=== PATIENT | female | born 1935 | race Caucasian/White ===

== ENCOUNTER 2017-11-24 18:26 | Emergency (ER) | payer MEDICARE ==
[~2017-11-24] VITALS: Ht 165.1 cm; Wt 127.0 kg
[~2017-11-24 18:26] MED LIST: AMIO200T27 PO; CALC-336 PO; CHOL2000 PO; CINN500C16 PO; LACT1CAP73 PO; METO50TA17 PO; RIVA10TA PO; TURM500C3; occuvite PO
[2017-11-24 19:03] LABS: BASOPHILS % (AUTO) 0.3 % (0-1); EOSINOPHILS # (AUTO) 0.3 X10'3 (0-0.9); EOSINOPHILS % (AUTO) 4.7 % (0-6); HEMATOCRIT 45.4 % (35.0-45.0); HEMOGLOBIN 14.8 g/dl (12.0-16.0); LYMPHOCYTES # (AUTO) 1.5 X10'3 (1.1-4.8); LYMPHOCYTES % (AUTO) 24.4 % (21-51); MEAN CORPUSCULAR HEMOGLOBIN 28.6 PG (27.0-31.0); MEAN CORPUSCULAR HGB CONC 32.5 % (33.0-36.5); MEAN CORPUSCULAR VOLUME 87.9 FL (78-98); MEAN PLATELET VOLUME 7.5 FL (7.4-10.4); MONOCYTES # (AUTO) 0.6 X10'3 (0-0.9); MONOCYTES % (AUTO) 10.5 % (2-12); NEUTROPHILS # (AUTO) 3.6 X10'3 (1.8-7.7); NEUTROPHILS % (AUTO) 60.1 % (42-75); PLATELET COUNT 176 X10'3 (140-440); RED BLOOD COUNT 5.17 X10'6 (4.20-5.60)
[2017-11-24 19:15] LABS: PARTIAL THROMBOPLASTIN TIME 27 SECONDS (22-32); PROTHROMBIN TIME 10.7 SECONDS (9.0-12.0)
[2017-11-24 19:19] LABS: ALANINE AMINOTRANSFERASE 44 U/L (12-78); ALBUMIN 3.7 G/DL (3.4-5.0); ALBUMIN/GLOBULIN RATIO 0.8 (1.1-1.5); ALKALINE PHOSPHATASE 111 IU/L (46-116); ANION GAP 8 (8-16); ASPARTATE AMINO TRANSFERASE 30 U/L (10-37); BILIRUBIN,TOTAL 0.3 MG/DL (0.1-1.0); BLOOD UREA NITROGEN 21 MG/DL (7-18); BUN/CREATININE RATIO 23.6 (6.6-38.0); CALCIUM 9.4 MG/DL (8.5-10.1); CHLORIDE 105 MMOL/L (99-107); CREATININE 0.89 MG/DL (0.40-0.90); GLUCOSE 103 MG/DL (70-104); POTASSIUM 4.2 MMOL/L (3.5-5.1); SODIUM 145 MMOL/L (135-145); TOTAL PROTEIN 8.1 G/DL (6.4-8.2); eGFR 61 ML/MIN
[2017-11-24 20:27] LABS: D-DIMER 0.53 MG/L FEU (0-0.50)
[2017-11-24] MEDS ORDERED: GUAI120L55 PO (22:42)
[2017-11-24 23:20] VITALS: BP 159/83
== END 2017-11-24 23:21 | disposition home or self-care (01) ==
LOC: ER 18:26
DX: R91.8 Other nonspecific abnormal finding of lung field (principal); R06.02 Shortness of breath; R05 Cough; I50.9 Heart failure, unspecified; Z88.0 Allergy status to penicillin; Z79.899 Other long term (current) drug therapy
CPT/HCPCS: 36415; 71045; 71275; 80053; 83880; 84484; 85025; 85379; 85610; 85730; 93005; 99285

== ENCOUNTER 2018-04-21 08:42 | Outpatient (CLI) | payer MEDICARE ==
[~2018-04-21 08:42] MED LIST changes: +GUAI120L55 PO
[2018-04-21 09:15] LABS: TOTAL HEMOGLOBIN 12.2 G/dl (12.0-16.0)
[2018-04-21] MEDS ORDERED: albuterol 2.5 MG/3 ML nebule NEB ONE (10:05)
[2018-04-22] MEDS ORDERED: METO25TA6 PO (06:51)
[2018-04-22] MEDS ORDERED: CINN500C15 PO (06:51)
[2018-04-22] MEDS ORDERED: TURM500C4 PO (06:51)
== END 2018-04-21 23:59 | disposition home or self-care (01) ==
LOC: RT 08:42
PROVIDERS: ATTEND Internal Medicine Cardiovascular Disease
DX: Z51.81 Encounter for therapeutic drug level monitoring (principal); J98.4 Other disorders of lung; Z79.899 Other long term (current) drug therapy
CPT/HCPCS: 85018; 94060; 94640; 94727; 94729; 94760

== ENCOUNTER 2019-03-07 10:34 | Inpatient (IN) | payer MEDICARE ==
[~2019-03-07] VITALS: Ht 165.1 cm; Wt 147.0 kg
[~2019-03-07 10:34] MED LIST changes: +CINN500C15 PO; -CINN500C16 PO; -GUAI120L55 PO; -LACT1CAP73 PO; +METO25TA6 PO; -METO50TA17 PO; -TURM500C3; +TURM500C4 PO
[2019-03-07 11:21] LABS: BASOPHILS % (AUTO) 0.6 % (0-1); EOSINOPHILS # (AUTO) 0.2 X10'3 (0-0.9); EOSINOPHILS % (AUTO) 2.3 % (0-6); HEMATOCRIT 37.9 % (35.0-45.0); HEMOGLOBIN 12.4 g/dl (12.0-16.0); LYMPHOCYTES % (AUTO) 14.2 % (21-51); MEAN CORPUSCULAR HEMOGLOBIN 29.2 PG (27.0-31.0); MEAN CORPUSCULAR HGB CONC 32.7 g/dL (33.0-36.5); MEAN CORPUSCULAR VOLUME 89.2 FL (78-98); MEAN PLATELET VOLUME 8.7 FL (7.4-10.4); MONOCYTES # (AUTO) 0.6 X10'3 (0-0.9); MONOCYTES % (AUTO) 8.6 % (2-12); NEUTROPHILS % (AUTO) 74.3 % (42-75); PLATELET COUNT 146 X10'3 (140-440); RED BLOOD COUNT 4.25 X10'6 (4.20-5.60); RED CELL DISTRIBUTION WIDTH 15.5 % (11.5-14.5); WHITE BLOOD COUNT 6.8 X10'3 (4.5-11.0)
[2019-03-07 11:36] LABS: ALANINE AMINOTRANSFERASE 43 U/L (12-78); ALBUMIN 3.4 G/DL (3.4-5.0); ALKALINE PHOSPHATASE 62 IU/L (46-116); ANION GAP 7 (8-16); ASPARTATE AMINO TRANSFERASE 29 U/L (10-37); BILIRUBIN,TOTAL 0.4 MG/DL (0.1-1.0); BLOOD UREA NITROGEN 27 MG/DL (7-18); BUN/CREATININE RATIO 26.2 (6.6-38.0); CHLORIDE 109 MMOL/L (99-107); CREATININE 1.03 MG/DL (0.40-0.90); GLUCOSE 98 MG/DL (70-104); POTASSIUM 4.2 MMOL/L (3.5-5.1); SODIUM 145 MMOL/L (135-145); TOTAL CARBON DIOXIDE 29.2 MMOL/L (24-32); TOTAL PROTEIN 6.7 G/DL (6.4-8.2); eGFR 51 ML/MIN
[2019-03-07 11:41] LABS: INR 1.4 INR; PARTIAL THROMBOPLASTIN TIME 30 SECONDS (22-32); PROTHROMBIN TIME 13.6 SECONDS (9.0-12.0)
[2019-03-07] MEDS ORDERED: iohexol 350MG/ML 100ml bottle IV ONE (12:54)
[2019-03-07] MEDS ORDERED: metoprolol tartrate 1mg/ml inj IV ONE (14:50)
--- NOTE | 2019-03-07 14:59 | NUR ---
Informed LONG CISNEROS about gait test.
[2019-03-07] MEDS ORDERED: mag hydrox/Alum hydrox/simeth 30ml oral suspension PO PRN (15:55)
[2019-03-07] MEDS ORDERED: ondansetron/PF 4mg/2ml inj IV PRN (15:55)
[2019-03-07] MEDS ORDERED: potassium Cl 20 mEq SR tablet PO PRN ×2 (15:55)
[2019-03-07] MEDS ORDERED: potassium Cl 40MEQ/NS 500ml 500 ML IV PRN ×2 (15:55)
[2019-03-07] MEDS ORDERED: diltiazem-D5W 125mg/125ml 125 ML IV SCH (15:55)
[2019-03-07] MEDS ORDERED: furosemide 40mg/4ml inj IV ONE (15:55)
[2019-03-07] MEDS ORDERED: magnesium 2GM in 50ml NS 50 ML IV PRN (15:55)
[2019-03-07] MEDS ORDERED: acetaminophen 325mg tablet PO PRN ×2 (15:55)
[2019-03-07] MEDS: K and/or MAG REPLACEMENT MC SCH (15:55)
[2019-03-07] MEDS ORDERED: magnesium 4gm in 100ml NS 100 ML IV PRN (15:55)
[2019-03-07] MEDS ORDERED: diltiazem 5mg/ml 5ml inj. IV ONE (15:55)
[2019-03-07] MEDS ORDERED: HYDROcodone/acetaminophen 10/325mg tab PO PRN (15:55)
[2019-03-07] MEDS ORDERED: MAGN400O6 PO (15:59)
[2019-03-07] MEDS: amiodarone 200mg tablet PO SCH (16:44)
[2019-03-07] MEDS: furosemide 40mg/4ml inj IV SCH (19:50)
[2019-03-07] MEDS: metoprolol tartrate 25mg tablet PO SCH (19:50)
[2019-03-07] MEDS: magnesium hydroxide 30ml (MOM) UD suspension PO PRN (20:19)
[2019-03-07] MEDS ORDERED: temazepam 15mg capsule PO PRN (21:00)
--- NOTE | 2019-03-07 23:45 | NUR ---
REPORT RECIEVED FROM SHAI ALVES RN. QUESTIONS ASKED AND ANSWERED. PATIENT WILL BE TRANSFERED TO FLOOR ON HOSPITAL BED.
--- NOTE | 2019-03-07 23:59 | NUR ---
PATIENT ARRIVED TO ROOM 3026 B IN HOSPITAL BED ON 3L NC, CARD GTT RUNNING AT 5. PATIENT IS ALERT AND IN GOOD SPIRTS SINGING A SONG. SKIN CHECK AND DART COMPLETED. WICK PLACED DUE TO INCONTINENCE. PATIENT AWARE OF HOW CALL LIGHT, BED, WICK, TV WORK.
[2019-03-08] VITALS (19 sets, daily range): BP systolic 104–145; BP diastolic 57–88
--- NOTE | 2019-03-08 00:56 | NUR ---
PATIENT ON PERSONAL CPAP
[2019-03-08 05:30] LABS: ALBUMIN 3.2 G/DL (3.4-5.0); ANION GAP 10 (8-16); BLOOD UREA NITROGEN 26 MG/DL (7-18); BUN/CREATININE RATIO 23.6 (6.6-38.0); CALCIUM 8.6 MG/DL (8.5-10.1); CHLORIDE 108 MMOL/L (99-107); CHOL/HDL RATIO 2.3 (0.00-4.99); CHOLESTEROL 123 MG/DL (0-200); GLUCOSE 93 MG/DL (70-104); HDL CHOLESTEROL 53 MG/DL (35-60); LDL CHOLESTEROL 60 MG/DL (50-100); MAGNESIUM 1.7 MG/DL (1.5-2.4); POTASSIUM 3.7 MMOL/L (3.5-5.1); SODIUM 145 MMOL/L (135-145); TOTAL CARBON DIOXIDE 26.8 MMOL/L (24-32); TRIGLYCERIDES 53 MG/DL (20-135); eGFR 48 ML/MIN
[2019-03-08 06:02] LABS: HEMATOCRIT 37.2 % (35.0-45.0); HEMOGLOBIN 12.1 g/dl (12.0-16.0); MEAN CORPUSCULAR HEMOGLOBIN 29.1 PG (27.0-31.0); MEAN CORPUSCULAR HGB CONC 32.6 g/dL (33.0-36.5); MEAN CORPUSCULAR VOLUME 89.2 FL (78-98); MEAN PLATELET VOLUME 8.8 FL (7.4-10.4); PLATELET COUNT 126 X10'3 (140-440); RED BLOOD COUNT 4.17 X10'6 (4.20-5.60); RED CELL DISTRIBUTION WIDTH 15.2 % (11.5-14.5); WHITE BLOOD COUNT 5.3 X10'3 (4.5-11.0)
[2019-03-08] MEDS ORDERED: amiodarone 150mg/dext, iso-os 100 ML IV ONE (07:20)
[2019-03-08] MEDS ORDERED: morphine 10mg/ml inj. IV PRN (07:25)
[2019-03-08] MEDS ORDERED: MIDAZolam 1mg/ml 10ml vial IV PRN (07:25)
[2019-03-08] MEDS: metoprolol tartrate 25mg tablet PO SCH ×2 (08:00→20:00)
[2019-03-08] MEDS: K and/or MAG REPLACEMENT MC SCH (08:00)
[2019-03-08] MEDS ORDERED: amiodarone/D5 360MG/200ML BAG 200 ML IV SCH (08:15)
[2019-03-08] MEDS: furosemide 40mg/4ml inj IV SCH ×2 (08:45→19:59)
[2019-03-08] MEDS: amiodarone 200mg tablet PO SCH (11:23)
[2019-03-08] MEDS: rivaroxaban 10mg tablet PO SCH (11:25)
[2019-03-08] MEDS: magnesium Cl slow-release 64mg tablet PO PRN ×2 (11:25→20:01)
--- NOTE | 2019-03-08 14:02 | NUR ---
Patient in room PCU 3027. I have received report from Sophy ACHARYA and had the opportunity to ask questions and assume patient care. Will continue to monitor patient.
--- NOTE | 2019-03-08 18:25 | NUR ---
Problems reprioritized. Patient report given, questions answered & plan of care reviewed with Karley ACHARYA. Patient stable at transfer of care.
[2019-03-08] MEDS: magnesium hydroxide 30ml (MOM) UD suspension PO PRN (20:04)
--- NOTE | 2019-03-08 20:18 | NUR ---
Per Dr. Farley, patient's HR in the 90's now and he is concerned about patient trying to convert to A-flutter. Give Amiodarone 150mg now and get an other EKG in the am.
[2019-03-08] MEDS ORDERED: amiodarone 200mg tablet PO ONE (20:20)
[2019-03-08] MEDS ORDERED: amiodarone 100mg tablet PO ONE (20:35)
[2019-03-09 02:00] VITALS: BP 105/63
[2019-03-09 04:56] LABS: HEMATOCRIT 38.4 % (35.0-45.0); HEMOGLOBIN 12.7 g/dl (12.0-16.0); MEAN CORPUSCULAR HEMOGLOBIN 29.5 PG (27.0-31.0); MEAN CORPUSCULAR HGB CONC 33.1 g/dL (33.0-36.5); MEAN CORPUSCULAR VOLUME 89.4 FL (78-98); MEAN PLATELET VOLUME 8.6 FL (7.4-10.4); PLATELET COUNT 114 X10'3 (140-440); RED CELL DISTRIBUTION WIDTH 15.5 % (11.5-14.5); WHITE BLOOD COUNT 5.7 X10'3 (4.5-11.0)
[2019-03-09 05:14] LABS: ALBUMIN 3.2 G/DL (3.4-5.0); ANION GAP 6 (8-16); BLOOD UREA NITROGEN 29 MG/DL (7-18); BUN/CREATININE RATIO 25.9 (6.6-38.0); CALCIUM 8.7 MG/DL (8.5-10.1); CHLORIDE 106 MMOL/L (99-107); CREATININE 1.12 MG/DL (0.40-0.90); GLUCOSE 107 MG/DL (70-104); PHOSPHORUS 4.5 MG/DL (2.3-4.5); POTASSIUM 4.4 MMOL/L (3.5-5.1); SODIUM 141 MMOL/L (135-145); TOTAL CARBON DIOXIDE 29.2 MMOL/L (24-32); eGFR 47 ML/MIN
[2019-03-09 05:31] LABS: INR 1.3 INR; PARTIAL THROMBOPLASTIN TIME 30 SECONDS (22-32); PROTHROMBIN TIME 12.7 SECONDS (9.0-12.0)
--- NOTE | 2019-03-09 05:57 | NUR ---
Problems reprioritized. Patient report given, questions answered & plan of care reviewed with MARCK Kellogg.
[2019-03-09 06:10] VITALS: BP 115/81
--- NOTE | 2019-03-09 07:16 | NUR ---
Patient in room PCU 3026. I have received report from JERARDO ACHARYA and had the opportunity to ask questions and assume patient care. BEDSIDE REPORT COMPLETED. PT RESTING NO DISTRESS. CALL LIGHT IN REACH. Addendum: 03/09/19 at 0717 by Bess Sanchez RN Amended: Links added.
[2019-03-09] MEDS: K and/or MAG REPLACEMENT MC SCH (08:00)
[2019-03-09] MEDS: rivaroxaban 10mg tablet PO SCH (08:09)
[2019-03-09] MEDS: amiodarone 200mg tablet PO SCH (08:10)
[2019-03-09] MEDS: metoprolol tartrate 25mg tablet PO SCH (08:11)
[2019-03-09] MEDS: furosemide 40mg/4ml inj IV SCH (08:11)
[2019-03-09] MEDS ORDERED: metoprolol tartrate 12.5mg (1/2 tablet) PO ONE (08:20)
[2019-03-09] MEDS ORDERED: POTA20TA19 PO (11:20)
[2019-03-09] MEDS ORDERED: DOCU-28 PO (11:20)
[2019-03-09] MEDS ORDERED: FURO-150 PO (11:20)
[2019-03-09 11:40] VITALS: BP 120/87
--- NOTE | 2019-03-09 13:30 | NUR ---
ALL WRITTEN AND VERBAL ORDERS FOR D/C GIVEN. ALL QUESTIONS ANSWERED. PT STATED SHE HAD ALL BELONGINGS. CHF CLASS INFO GIVEN. NEED TO BE COMPLIANT WITH MEDS REVIEWED. PT LEFT HOSPITAL VIA W/C. HOME WITH FRIEND. Addendum: 03/09/19 at 1426 by Bess Sanchez RN Amended: Links added.
[2019-03-09] MEDS ORDERED: metoprolol tartrate 25mg tablet PO SCH (20:00)
[2019-03-10] MEDS ORDERED: furosemide 40mg/4ml inj IV SCH (08:00)
== END 2019-03-09 14:09 | disposition home or self-care (01) | DRG 291 ==
LOC: ER 10:35 → UNDOADMIN 15:59 → ED HOLD 15:59 → CMPBEDREQ 03-08 00:07 → PCU 3S 03-08 00:21
PROVIDERS: ADMIT Family Medicine; ATTEND Internal Medicine
PROC: B3201ZZ Computerized Tomography (CT Scan) of Thoracic Aorta using Low Osmolar Contrast (ICD-10-PCS; 2019-03-07)
PROC: B32T1ZZ Computerized Tomography (CT Scan) of Left Pulmonary Artery using Low Osmolar Contrast (ICD-10-PCS; 2019-03-07)
PROC: B32S1ZZ Computerized Tomography (CT Scan) of Right Pulmonary Artery using Low Osmolar Contrast (ICD-10-PCS; 2019-03-07)
PROC: 5A2204Z Restoration of Cardiac Rhythm, Single (ICD-10-PCS; principal; 2019-03-08)
PROC: 5A09357 Assistance with Respiratory Ventilation, Less than 24 Consecutive Hours, Continuous Positive Airway Pressure (ICD-10-PCS; 2019-03-09)
DX: I11.0 Hypertensive heart disease with heart failure (principal); J96.01 Acute respiratory failure with hypoxia; Z68.43 Body mass index [BMI] 50.0-59.9, adult; I50.33 Acute on chronic diastolic (congestive) heart failure; G47.30 Sleep apnea, unspecified; R00.1 Bradycardia, unspecified; I25.10 Atherosclerotic heart disease of native coronary artery without angina pectoris; E66.01 Morbid (severe) obesity due to excess calories; I27.20 Pulmonary hypertension, unspecified; M19.90 Unspecified osteoarthritis, unspecified site; I48.0 Paroxysmal atrial fibrillation; K59.09 Other constipation; Z90.49 Acquired absence of other specified parts of digestive tract; Z88.0 Allergy status to penicillin; Z91.040 Latex allergy status; Z79.899 Other long term (current) drug therapy; Z79.01 Long term (current) use of anticoagulants; Z80.0 Family history of malignant neoplasm of digestive organs; Z80.41 Family history of malignant neoplasm of ovary
CPT/HCPCS: 36415; 71045; 71275; 80048; 80053; 80061; 82948; 83735; 83880; 84100; 84443; 84484; 85025; 85027; 85610; 85730; 87070; 93005; 93306; 99285; G0378; J0282; J1940; J2250; J2270; J3490; Q9967

== ENCOUNTER 2019-05-04 13:42 | Outpatient (CLI) | payer MEDICARE ==
[~2019-05-04] VITALS: Ht 190.5 cm; Wt 141.5 kg
[~2019-05-04 13:42] MED LIST changes: -AMIO200T27 PO; +DOCU-28 PO; +MAGN400O6 PO; -occuvite PO
[2019-05-04] MEDS ORDERED: albuterol 2.5 MG/3 ML nebule NEB PRN (14:55)
== END 2019-05-04 23:59 | disposition home or self-care (01) ==
LOC: RT 13:42
PROVIDERS: ATTEND Internal Medicine Cardiovascular Disease
DX: R06.02 Shortness of breath (principal); I11.0 Hypertensive heart disease with heart failure; I50.9 Heart failure, unspecified; I48.91 Unspecified atrial fibrillation; I25.10 Atherosclerotic heart disease of native coronary artery without angina pectoris; Z79.899 Other long term (current) drug therapy; Z87.891 Personal history of nicotine dependence
CPT/HCPCS: 85018; 94060; 94727; 94729; 94760

== ENCOUNTER 2019-06-02 09:36 | Emergency (ER) | payer MEDICARE ==
[~2019-06-02] VITALS: Ht 165.1 cm; Wt 141.4 kg
[2019-06-02 10:16] LABS: BASOPHILS % (AUTO) 0.8 % (0-1); EOSINOPHILS # (AUTO) 0.1 X10'3 (0-0.9); EOSINOPHILS % (AUTO) 2.5 % (0-6); HEMATOCRIT 39.9 % (35.0-45.0); HEMOGLOBIN 12.9 g/dl (12.0-16.0); LYMPHOCYTES % (AUTO) 16.7 % (21-51); MEAN CORPUSCULAR HEMOGLOBIN 28.8 PG (27.0-31.0); MEAN CORPUSCULAR HGB CONC 32.3 g/dL (33.0-36.5); MEAN CORPUSCULAR VOLUME 89.2 FL (78-98); MEAN PLATELET VOLUME 8.5 FL (7.4-10.4); MONOCYTES # (AUTO) 0.5 X10'3 (0-0.9); MONOCYTES % (AUTO) 8.7 % (2-12); NEUTROPHILS # (AUTO) 4.1 X10'3 (1.8-7.7); NEUTROPHILS % (AUTO) 71.3 % (42-75); PLATELET COUNT 162 X10'3 (140-440); RED BLOOD COUNT 4.48 X10'6 (4.20-5.60); RED CELL DISTRIBUTION WIDTH 17.4 % (11.5-14.5); WHITE BLOOD COUNT 5.8 X10'3 (4.5-11.0)
[2019-06-02 10:33] LABS: PARTIAL THROMBOPLASTIN TIME 31 SECONDS (22-32)
[2019-06-02 10:43] LABS: ALANINE AMINOTRANSFERASE 48 U/L (12-78); ALBUMIN 3.5 G/DL (3.4-5.0); ALBUMIN/GLOBULIN RATIO 0.9 (1.1-1.5); ALKALINE PHOSPHATASE 73 IU/L (46-116); ANION GAP 8 (8-16); ASPARTATE AMINO TRANSFERASE 32 U/L (10-37); BILIRUBIN,TOTAL 0.6 MG/DL (0.1-1.0); BLOOD UREA NITROGEN 25 MG/DL (7-18); BUN/CREATININE RATIO 22.3 (6.6-38.0); CHLORIDE 108 MMOL/L (99-107); CREATININE 1.12 MG/DL (0.40-0.90); GLUCOSE 97 MG/DL (70-104); POTASSIUM 4.5 MMOL/L (3.5-5.1); SODIUM 143 MMOL/L (135-145); TOTAL CARBON DIOXIDE 26.9 MMOL/L (24-32); TOTAL PROTEIN 7.2 G/DL (6.4-8.2); eGFR 47 ML/MIN
[2019-06-02] MEDS ORDERED: furosemide 20MG tablet PO ONE (14:15)
[2019-06-02 14:25] VITALS: BP 138/79
[2019-06-02] MEDS ORDERED: metoprolol succinate 25mg (24-HOUR) SR. Tablet PO SCH (15:40)
[2019-06-02] MEDS ORDERED: metoprolol succinate 25mg (24-HOUR) SR. Tablet PO ONE (15:40)
== END 2019-06-02 16:04 | disposition home or self-care (01) ==
LOC: ER 09:37
DX: I50.9 Heart failure, unspecified (principal); I48.91 Unspecified atrial fibrillation; Z86.718 Personal history of other venous thrombosis and embolism; Z86.711 Personal history of pulmonary embolism; Z87.01 Personal history of pneumonia (recurrent); Z88.0 Allergy status to penicillin; Z91.040 Latex allergy status; Z79.899 Other long term (current) drug therapy
CPT/HCPCS: 36415; 71045; 80053; 83880; 84484; 85025; 85610; 85730; 93005; 99284

== ENCOUNTER 2019-06-15 09:24 | Emergency (ER) | payer MEDICARE ==
[~2019-06-15] VITALS: Ht 165.1 cm; Wt 142.0 kg
--- NOTE | 2019-06-15 10:45 | NUR ---
Vascular at bedside.
[2019-06-15 11:18] VITALS: BP 143/65
== END 2019-06-15 11:49 | disposition home or self-care (01) ==
LOC: ER 09:25
DX: R25.2 Cramp and spasm (principal); I48.91 Unspecified atrial fibrillation; I50.9 Heart failure, unspecified; Z86.718 Personal history of other venous thrombosis and embolism; Z88.0 Allergy status to penicillin; Z91.040 Latex allergy status; Z88.8 Allergy status to other drugs, medicaments and biological substances; Z79.899 Other long term (current) drug therapy
CPT/HCPCS: 93971; 99284

== ENCOUNTER 2019-10-15 20:10 | Emergency (ER) | payer MEDICARE ==
[~2019-10-15] VITALS: Ht 165.1 cm; Wt 121.0 kg
[2019-10-15] MEDS ORDERED: BUME2TAB7 PO (20:29)
[2019-10-15] MEDS ORDERED: SPIR25TA5 PO (20:29)
[2019-10-15] MEDS ORDERED: TRIA1CAP6 PO (20:29)
[2019-10-15 20:38] VITALS: BP 125/75
[2019-10-15 20:52] LABS: BASOPHILS # (AUTO) 0.1 X10'3 (0-0.2); BASOPHILS % (AUTO) 0.7 % (0-1); EOSINOPHILS # (AUTO) 0.2 X10'3 (0-0.9); EOSINOPHILS % (AUTO) 2.7 % (0-6); HEMATOCRIT 34.8 % (35.0-45.0); HEMOGLOBIN 11.6 g/dl (12.0-16.0); LYMPHOCYTES # (AUTO) 1.1 X10'3 (1.1-4.8); LYMPHOCYTES % (AUTO) 12.2 % (21-51); MEAN CORPUSCULAR HEMOGLOBIN 29.5 PG (27.0-31.0); MEAN CORPUSCULAR HGB CONC 33.3 g/dL (33.0-36.5); MEAN CORPUSCULAR VOLUME 88.4 FL (78-98); MEAN PLATELET VOLUME 8.4 FL (7.4-10.4); MONOCYTES % (AUTO) 11.3 % (2-12); NEUTROPHILS # (AUTO) 6.4 X10'3 (1.8-7.7); NEUTROPHILS % (AUTO) 73.1 % (42-75); PLATELET COUNT 257 X10'3 (140-440); RED BLOOD COUNT 3.93 X10'6 (4.20-5.60); RED CELL DISTRIBUTION WIDTH 17.7 % (11.5-14.5); WHITE BLOOD COUNT 8.7 X10'3 (4.5-11.0)
[2019-10-15 21:05] LABS: ALANINE AMINOTRANSFERASE 17 U/L (12-78); ALBUMIN 3.6 G/DL (3.4-5.0); ALBUMIN/GLOBULIN RATIO 0.8 (1.1-1.5); ALKALINE PHOSPHATASE 100 IU/L (46-116); ANION GAP 7 (8-16); ASPARTATE AMINO TRANSFERASE 24 U/L (10-37); BILIRUBIN,TOTAL 0.4 MG/DL (0.1-1.0); BLOOD UREA NITROGEN 51 MG/DL (7-18); BUN/CREATININE RATIO 28.3 (6.6-38.0); CALCIUM 9.5 MG/DL (8.5-10.1); CHLORIDE 96 MMOL/L (99-107); GLUCOSE 135 MG/DL (70-104); POTASSIUM 4.7 MMOL/L (3.5-5.1); SODIUM 132 MMOL/L (135-145); TOTAL CARBON DIOXIDE 29.5 MMOL/L (24-32); TOTAL PROTEIN 8.2 G/DL (6.4-8.2); eGFR 27 ML/MIN
[2019-10-15 21:44] LABS: D-DIMER 1.76 MG/L FEU (0-0.50)
[2019-10-15] MEDS ORDERED: acetaminophen 325mg tablet PO ONE (22:30)
--- NOTE | 2019-10-15 23:42 | NUR ---
shop service technician with patient
== END 2019-10-16 00:12 | disposition home or self-care (01) ==
LOC: ER 20:12
DX: R07.89 Other chest pain (principal); I48.91 Unspecified atrial fibrillation; I50.9 Heart failure, unspecified; G47.30 Sleep apnea, unspecified; Z88.0 Allergy status to penicillin; Z91.040 Latex allergy status; Z88.8 Allergy status to other drugs, medicaments and biological substances
CPT/HCPCS: 36415; 71045; 80053; 83880; 84484; 85025; 85379; 93005; 93970; 99284